=== PATIENT | male | born 1975 | race Caucasian/White ===

== ENCOUNTER 2019-07-19 06:05 | Inpatient (IN) | payer OTHER ==
[2019-07-18 18:49] VITALS: BMI 26.3
[2019-07-19] MEDS ORDERED: fentaNYL CITRATE 250 MCG/5 ML VIAL ONE ×4 (07:37→11:15)
[2019-07-19] MEDS ORDERED: SUCCINYLCHOLINE CHLORIDE 200 MG/10 ML SYRINGE ONE (07:38)
[2019-07-19] MEDS ORDERED: PROPOFOL 20 ML ONE ×11 (07:38→12:08)
[2019-07-19] MEDS ORDERED: BUPIVACAINE LIPOSOME/PF (EXPAREL) 266 MG/20 ML VIAL ONE (07:47)
[2019-07-19] MEDS ORDERED: MIDAZOLAM HCL 2 MG/2 ML SINGLE DOSE VIAL ONE ×2 (07:49)
[2019-07-19] MEDS ORDERED: HEPARIN NA (PORCINE) 5,000 UNITS/ML 1ML VIAL ONE (08:07)
[2019-07-19] MEDS ORDERED: THROMBIN (BOVINE) 20,000 UNIT VIAL TP ONE (08:07)
[2019-07-19] MEDS ORDERED: VANCOMYCIN 1,000 MG VIAL (RESTRICTED TO ID ONLY) IVPB ONE (08:50)
[2019-07-19] MEDS ORDERED: ONDANSETRON 4 MG/2 ML VIAL ONE ×2 (09:01→12:59)
[2019-07-19] MEDS ORDERED: DEXAMETHASONE SOD PHOSPHATE 4 MG/1 ML VIAL ONE (09:01)
[2019-07-19] MEDS ORDERED: TRANEXAMIC ACID 1000 MG/10 ML VIAL ONE ×2 (09:18→10:55)
[2019-07-19] MEDS ORDERED: ceFAZolin SODIUM 1 GM VIAL ONE ×2 (09:18→12:21)
[2019-07-19] MEDS ORDERED: ceFAZolin SODIUM 1 GM VIAL IVPB ONE (09:30)
[2019-07-19] MEDS ORDERED: ROCURONIUM BROMIDE 50 MG/5 ML SYRINGE ONE (09:37)
[2019-07-19] MEDS ORDERED: THROMBIN (BOVINE) 5,000 UNIT VIAL TP ONE (09:38)
[2019-07-19] MEDS ORDERED: GELATIN, ABSORBABLE 100 EACH SPONGE TP ONE (09:38)
[2019-07-19] MEDS ORDERED: HYDROmorphone HCl 2 MG/ML VIAL ONE (10:12)
[2019-07-19] MEDS ORDERED: NEOSTIGMINE METHYLSULFATE 0.5 MG/1 ML - 10 ML MDV ONE (10:30)
[2019-07-19] MEDS ORDERED: GLYCOPYRROLATE 0.2 MG/1 ML VIAL ONE ×2 (10:30→10:31)
[2019-07-19] MEDS ORDERED: ONDANSETRON 4 MG/2 ML VIAL IVPUSH PRN ×2 (10:42→13:21)
[2019-07-19] MEDS ORDERED: HYDROmorphone *PCA* 10MG/50ML DISP.SYRIN PCA SCH (10:45)
[2019-07-19] MEDS ORDERED: HYDROmorphone *PCA* 10MG/50ML DISP.SYRIN ONE (12:49)
[2019-07-19] MEDS: LACTATED RINGERS SOLUTION 1,000 ML IV SCH (13:14)
[2019-07-19] MEDS ORDERED: diazePAM CARPU-JECT 10 MG/2 ML DISP.SYRIN IVPUSH PRN (13:21)
--- NOTE | 2019-07-19 13:29 | PN ---
Progress Note (short form) - Note Progress Note: 43M s/p L5-S1 posterior lumbar interbody fusion with L5-S1 instrumented posterolateral arthrodesis POD #0. -Admit to ICU post-op. -Pain control: patient received pre-op TLIP block w/Exparel; OK to use LABEL OPERATOR if needed; transition to oral analgesia post-op; NO NSAID's. -DVT PPx: -Mechanical only: RICK's, SCD's. -Chemical: None. -Incentive spirometry q15 min. -NPO until flatus. -Shaikh care; d/c when ambulating. -Post-op Ancef x 3 doses. -PT/OT/Rehab, OOB. -WBAT B/L LE. -No bending, lifting (>5 lbs), or twisting for 9-12 months. -Care per ICU & medical hospitalist teams. -Discharge planning: [facility]; call for appointment; . -Will follow. Alexi Bruno MD (Orthopaedic Surgery).
--- NOTE | 2019-07-19 13:33 | OP ---
Operative Note - Note: Operative Date: 07/19/19 Pre-Operative Diagnosis: 1. L5-S1 intervertebral disc herniation 2. L5-S1 spondylotic radiculopathy 3. L5-S1 spinal stenosis with neurogenic claudication 4. L5-S1 spondylolisthesis (retrolisthesis, grade I) 5. Segmental instability ( axial) L5-S1 with neuroforminal collapse & stenosis. SEVERITY OF ILLNESS: 4. Operation: 1. L5, S1 laminectomies & facetectomies. 2. L5-S1 discectomy. 3. L5 -S1 posterior lumbar interbody fusion. 4. L5-S1 posterolateral instrumentation. 5. L5-S1 posterolateral arthrodesis. 6. Bone autograft. 7. Bone allograft. 8. Bone marrow aspirate concentrate autograft. 9. Complex wound closure (10cm). Findings: See dictation. Implants: Cage: RTI Fortilink Post-Operative Diagnosis: Same as Pre-op Surgeon: Alexi Bruno Fire Code Inspector: Josué Bruno Anesthesiologist/EDUCATIONAL AUDIOLOGIST: Julien Sainz Anesthesia: General Specimens Removed: L5-S1 disc Estimated Blood Loss (mls): 500 Blood Volume Replaced (mls): 210 (Cell Saver) Fluid Volume Replaced (mls): 2,000 (Crystalloid) Operative Report Dictated: Yes
--- NOTE | 2019-07-19 15:55 | CONSULT ---
Consultation: REQUESTING PROVIDER: Dr. Bruno CONSULT REQUEST: We have been asked to medically evaluate this patient for post op monitoring. HISTORY OF PRESENT ILLNESS: 43 yo m w/ no PMH who is POD 0 L5, S1 laminectomies & facetectomies, L5-S1 discectomy, L5-S1 posterior lumbar interbody fusion with Dr. Bruno. On interview, the patient is awake and alert in minimal pain. INSURANCE PRODUCER pump in place. No other complaints. REVIEW OF SYSTEMS: CONSTITUTIONAL: Absent: fever, chills, diaphoresis, generalized weakness, malaise, loss of appetite, weight change HEENT: Absent: rhinorrhea, nasal congestion, throat pain, throat swelling, difficulty swallowing, mouth swelling, ear pain, eye pain, visual changes CARDIOVASCULAR: Absent: chest pain, syncope, palpitations, irregular heart rate, lightheadedness , peripheral edema RESPIRATORY: Absent: cough, shortness of breath, dyspnea with exertion, orthopnea, wheezing, stridor, hemoptysis GASTROINTESTINAL: Absent: abdominal pain, abdominal distension, nausea, vomiting, diarrhea, constipation, melena, hematochezia GENITOURINARY: Absent: dysuria, frequency, urgency, hesitancy, hematuria, flank pain, genital pain MUSCULOSKELETAL: Absent: myalgia, joint swelling, neck pain SKIN: Absent: rash, itching, pallor HEMATOLOGIC/IMMUNOLOGIC: Absent: easy bleeding, easy bruising, lymphadenopathy, frequent infections ENDOCRINE: Absent: unexplained weight gain, unexplained weight loss, heat intolerance, cold intolerance NEUROLOGIC: Absent: headache, focal weakness or paresthesias, dizziness, unsteady gait, seizure, mental status changes, bladder or bowel incontinence PSYCHIATRIC: Absent: anxiety, depression, suicidal or homicidal ideation, hallucinations. PHYSICAL EXAMINATION Vital Signs - 24 hr 07/18/19 07/19/19 07/19/19 18:43 06:53 13:14 Temperature 98.9 F 98.9 F 98.2 F Pulse Rate 90 90 89 Respiratory 20 20 16 Rate Blood Pressure 136/74 136/74 159/98 O2 Sat by Pulse 96 99 Oximetry (%) 07/19/19 07/19/19 07/19/19 13:18 13:30 13:45 Temperature Pulse Rate 89 87 90 Respiratory 16 16 16 Rate Blood Pressure 159/68 159/88 157/93 O2 Sat by Pulse 99 96 98 Oximetry (%) 07/19/19 07/19/19 07/19/19 14:00 14:15 14:30 Temperature Pulse Rate 98 H 84 88 Respiratory 18 14 14 Rate Blood Pressure 166/106 H 138/88 143/91 O2 Sat by Pulse 96 97 96 Oximetry (%) 07/19/19 07/19/19 14:45 15:00 Temperature Pulse Rate 84 86 Respiratory 16 16 Rate Blood Pressure 126/90 132/90 O2 Sat by Pulse 96 95 Oximetry (%) GENERAL: Awake, alert, and fully oriented, in no acute distress. HEAD: Normal with no signs of trauma. LUNGS: Breath sounds equal, clear to auscultation bilaterally. No wheezes, and no crackles. No accessory muscle use. HEART: Regular rate and rhythm, normal S1 and S2 without murmur, rub or gallop. ABDOMEN: Soft, nontender, not distended, normoactive bowel sounds, no guarding, no rebound, no masses. No hepatomegaly or splenomegaly. LOWER EXTREMITIES: 2+ pulses, warm, well-perfused. No calf tenderness. No peripheral edema. NEUROLOGICAL: Cranial nerves II-X intact. Normal speech. Sensation intact over the distal lower extremities. Patient able to move all 4 limbs spontaneously. Laboratory Results - last 24 hr 07/19/19 07/19/19 06:11 07:15 Blood Type A POSITIVE A POSITIVE Antibody Screen Negative Active Medications Generic Name Dose Route Start Last Admin Trade Name Freq PRN Reason Stop Dose Admin Acetaminophen 1,000 mg 07/19/19 20:00 Ofirmev Injection - IVPB 07/20/19 12:01 Q8H KAREN Diazepam 5 mg 07/19/19 13:21 07/19/19 13:30 Valium Injection - IVPUSH 5 mg Q8H PRN Administration MUSCLE SPASMS Hydromorphone HCl 10 mg 07/19/19 10:45 07/19/19 13:18 Hydromorphone 10 Mg/50 Ml-Ns INSURANCE PRODUCER 07/20/19 10:44 10 mg INSURANCE PRODUCER KAREN Administration Protocol Lactated Ringer's 1,000 mls @ 125 mls/hr 07/19/19 10:45 07/19/19 13:14 Lactated Ringers Solution IV 0 mls ASDIR KAREN Administration Ondansetron HCl 4 mg 07/19/19 10:42 Zofran Injection IVPUSH Q6H PRN NAUSEA AND/OR VOMITING Ondansetron HCl 4 mg 07/19/19 13:21 Zofran Injection IVPUSH Q6H PRN NAUSEA AND/OR VOMITING Oxycodone HCl 5 mg 07/19/19 13:21 Roxicodone - PO 07/20/19 13:20 Q4H PRN PAIN LEVEL 1-5 Oxycodone HCl 10 mg 07/19/19 13:21 Roxicodone - PO 07/20/19 13:20 Q4H PRN PAIN LEVEL 6-10 ASSESSMENT/PLAN: 43 yo m w/ no PMH who is POD 0 from orthropedic spine surgery with Dr. Bruno. #Neuro: -alert and oriented #Pulmonary -Incentive spirometry [id number] #MSK -POD spinal surgery -neurovascularly intact -post op management as per Dr. Bruno -Pain Ctrl w/ pre-op TLIP block, on INSURANCE PRODUCER for now; NO NSAIDS -PT/OOB #GI -NPO until flatus #ID -post op ancef x 3 doses #FEN -LR @ 125 -will check lytes in am; replete PRN -NPO until flatus #Prophy -Mechanical DVT prophylaxsis only #Dispo -observe post op in ICU Dispo: We will continue to follow the patient. Thank you for this consultative opportunity. Visit type - Emergency Visit Emergency Visit: No - New Patient This patient is new to me today: Yes Date on this admission: 07/19/19 - Critical Care Critical Care patient: Yes Total Critical Care Time (in minutes): 35 Critical Care Statement: The care of this patient involved high complexity decision making to prevent further life threatening deterioration of the patient 's condition and/or to evaluate & treat vital organ system(s) failure or risk of failure. ATTENDING PHYSICIAN STATEMENT I saw and evaluated the patient. I reviewed the resident's note and discussed the case with the resident. I agree with the resident's findings and plan as documented. SUBJECTIVE: OBJECTIVE: ASSESSMENT AND PLAN:
--- NOTE | 2019-07-19 16:12 | PN ---
Physical Exam: SUBJECTIVE: Patient seen and examined in the icu post op. OBJECTIVE: Patient is a 43 year old male. He is s/p L5-S1 posterior lumbar interbody fusion with L5-S1 instrumented posterolateral arthrodesis POD #[address] Bruno. On exam, patient is awake and alert and denies any pain. Has MANAGER RECRUITING dilaudid available to him. Vital Signs Period Temp Pulse Resp BP Sys/Plata Pulse Ox Last 24 Hr 98.2 F-99.2 F 74-98 14-20 126-166/68-120 95-99 GENERAL: The patient is awake, alert, and fully oriented, in no acute distress. HEAD: Normal with no signs of trauma. EYES: PERRL, extraocular movements intact, sclera anicteric, conjunctiva clear. No ptosis. ENT: Ears normal, nares patent, oropharynx clear without exudates, moist mucous membranes. NECK: Trachea midline, full range of motion, supple. LUNGS: Breath sounds equal, clear to auscultation bilaterally HEART: Regular rate and rhythm ABDOMEN: Soft, nontender, nondistended, normoactive bowel sounds EXTREMITIES: no edema. NEUROLOGICAL: Normal speech, gait not observed. Laboratory Results - last 24 hr 07/19/19 07/19/19 06:11 07:15 Blood Type A POSITIVE A POSITIVE Antibody Screen Negative Active Medications Generic Name Dose Route Start Last Admin Trade Name Freq PRN Reason Stop Dose Admin Acetaminophen 1,000 mg 07/19/19 20:00 Ofirmev Injection - IVPB 07/20/19 12:01 Q8H KAREN Diazepam 5 mg 07/19/19 13:21 07/19/19 13:30 Valium Injection - IVPUSH 5 mg Q8H PRN Administration MUSCLE SPASMS Hydromorphone HCl 10 mg 07/19/19 10:45 07/19/19 13:18 Hydromorphone 10 Mg/50 Ml-Ns MANAGER RECRUITING 07/20/19 10:44 10 mg MANAGER RECRUITING KAREN Administration Protocol Lactated Ringer's 1,000 mls @ 125 mls/hr 07/19/19 10:45 07/19/19 13:14 Lactated Ringers Solution IV 800 mls ASDIR KAREN Administration Ondansetron HCl 4 mg 07/19/19 10:42 Zofran Injection IVPUSH Q6H PRN NAUSEA AND/OR VOMITING Ondansetron HCl 4 mg 07/19/19 13:21 Zofran Injection IVPUSH Q6H PRN NAUSEA AND/OR VOMITING Oxycodone HCl 5 mg 07/19/19 13:21 Roxicodone - PO 07/20/19 13:20 Q4H PRN PAIN LEVEL 1-5 Oxycodone HCl 10 mg 07/19/19 13:21 Roxicodone - PO 07/20/19 13:20 Q4H PRN PAIN LEVEL 6-10 ASSESSMENT/PLAN: Surgery: L5-S1 posterior lumbar interbody fusion with L5-S1 instrumented posterolateral arthrodesis POD #0 Post op monitoring in the ICU. on dilaudid commercial development manager initiate post op care: incentive spirometer, vitals signs, labs, pain scale surgery follow up Npo until flatus post op antibiotics wbat surgical weight lifting restrictions discharge planning once cleared by surgery Hypertension BP elevated monitor and is remain elevated may need antihypertensives prophylaxis SCDs diet once patient has flatus full code Visit type - Emergency Visit Emergency Visit: Yes ED Registration Date: 07/19/19 Care time: The patient presented to the Emergency Department on the above date and was hospitalized for further evaluation of their emergent condition. - New Patient This patient is new to me today: Yes Date on this admission: 07/19/19 - Critical Care Critical Care patient: Yes Total Critical Care Time (in minutes): 40 Critical Care Statement: The care of this patient involved high complexity decision making to prevent further life threatening deterioration of the patient 's condition and/or to evaluate & treat vital organ system(s) failure or risk of failure. - Discharge Referral Referred to [facility] No
[2019-07-19] MEDS: oxyCODONE HCL 5 MG TABLET PO PRN ×2 (16:37→22:15)
[2019-07-19] MEDS: ceFAZolin 2 GRAM PREMIX BAG IVPB SCH (18:22)
[2019-07-19] MEDS: ACETAMINOPHEN 1000 MG/100 ML VIAL (NON FORMULARY) IVPB SCH (20:16)
[2019-07-19] MEDS ORDERED: MELATONIN 5 MG TABLETS PO ONE (22:04)
[2019-07-20] MEDS: ceFAZolin 2 GRAM PREMIX BAG IVPB SCH ×2 (00:24→06:30)
[2019-07-20] MEDS: oxyCODONE HCL 5 MG TABLET PO PRN ×5 (02:47→22:01)
[2019-07-20] MEDS: ACETAMINOPHEN 1000 MG/100 ML VIAL (NON FORMULARY) IVPB SCH ×2 (04:30→12:03)
[2019-07-20 06:46] LABS: BASO % 0.2 % (0-2.0); EOS % 0.1 % (0-4.5); HEMATOCRIT 33.2 % (35.4-49); HEMOGLOBIN 11.5 GM/dL (11.7-16.9); LYMPH % 23.1 % (8-40); MCH 32.6 pg (25.7-33.7); MCHC 34.7 g/dl (32.0-35.9); MEAN PLT VOLUME 9.3 fl (7.5-11.1); MONO % 6.8 % (3.8-10.2); NEUT % 69.8 % (42.8-82.8); PLATELET COUNT 163 K/MM3 (134-434); RBC 3.53 M/mm3 (4.00-5.60); RDW 12.6 % (11.9-15.9); WHITE BLOOD COUNT 8.2 K/mm3 (4.0-10.0)
[2019-07-20 07:11] LABS: ALBUMIN 2.6 g/dl (3.4-5.0); BILIRUBIN,TOTAL 0.2 mg/dL (0.2-1); BLOOD UREA NITROGEN 9.2 mg/dL (7-18); CALCIUM 7.4 mg/dL (8.5-10.1); CREATININE 0.8 mg/dL (0.55-1.3); MAGNESIUM 1.7 mg/dL (1.8-2.4); PHOSPHOROUS 2.6 mg/dL (2.5-4.9); POTASSIUM 4.1 mmol/L (3.5-5.1); TOT PROT 5.1 g/dl (6.4-8.2)
--- NOTE | 2019-07-20 08:30 | PN ---
Progress Note (short form) - Note Progress Note: Anesthesia/pain Pt seen and examined S:Alert and awake comfortable O: Vital Signs Temperature 99 F 07/20/19 07:20 Pulse Rate 78 07/20/19 07:20 Respiratory Rate 15 07/20/19 07:20 Blood Pressure 118/67 07/20/19 07:20 O2 Sat by Pulse Oximetry (%) 95 07/20/19 07:20 CBC, BMP 07/20/19 06:00 07/20/19 06:00 A/P: s/p PLIF Lumbar Uses BRINELL TESTER Doing well post op Continue current care Musa Ivey MD
--- NOTE | 2019-07-20 10:18 | PN ---
Teaching Attending Note Name of Resident: Aly Kern ATTENDING PHYSICIAN STATEMENT I saw and evaluated the patient. I reviewed the resident's note and discussed the case with the resident. I agree with the resident's findings and plan as documented. SUBJECTIVE: Patient seen and examined in the ICU. OOB to chair. Pain 8/10. On DISTRESSER. No CP or SOB. Intake & Output 07/17/19 07/18/19 07/19/19 07/20/19 23:59 23:59 23:59 23:59 Intake Total 3010 Output Total 2400 Balance 610 Weight 205 lb Last Vital Signs Temp Pulse Resp BP Pulse Ox 99 F 78 15 118/67 95 07/20/19 07:20 07/20/19 07:20 07/20/19 07:20 07/20/19 07:20 07/20/19 07:20 Active Medications Acetaminophen (Ofirmev Injection -) 1,000 mg IVPB Q8H [facility] Stop: 07/20/19 12:01 Last Admin: 07/20/19 04:30 Dose: 1,000 mg Diazepam (Valium Injection -) 5 mg IVPUSH Q8H PRN PRN Reason: MUSCLE SPASMS Last Admin: 07/19/19 13:30 Dose: 5 mg Hydromorphone HCl (Hydromorphone 10 Mg/50 Ml-Ns) 10 mg DISTRESSER DISTRESSER [facility]; Protocol Stop: 07/20/19 10:44 Last Admin: 07/19/19 13:18 Dose: 10 mg Lactated Ringer's (Lactated Ringers Solution) 1,000 mls @ 125 mls/hr IV ASDIR [facility] Last Admin: 07/19/19 13:14 Dose: 800 mls Ondansetron HCl (Zofran Injection) 4 mg IVPUSH Q6H PRN PRN Reason: NAUSEA AND/OR VOMITING Ondansetron HCl (Zofran Injection) 4 mg IVPUSH Q6H PRN PRN Reason: NAUSEA AND/OR VOMITING Oxycodone HCl (Roxicodone -) 5 mg PO Q4H PRN PRN Reason: PAIN LEVEL 1-5 Stop: 07/20/19 13:20 Last Admin: 07/19/19 22:15 Dose: 5 mg Oxycodone HCl (Roxicodone -) 10 mg PO Q4H PRN PRN Reason: PAIN LEVEL 6-10 Stop: 07/20/19 13:20 Last Admin: 07/20/19 09:27 Dose: 10 mg GENERAL: Awake, alert, and fully oriented, in no acute distress. HEAD: Normal with no signs of trauma. LUNGS: Breath sounds equal, clear to auscultation bilaterally. No wheezes, and no crackles. No accessory muscle use. HEART: Regular rate and rhythm, normal S1 and S2 without murmur, rub or gallop. ABDOMEN: Soft, nontender, not distended, normoactive bowel sounds, no guarding, no rebound, no masses. No hepatomegaly or splenomegaly. LOWER EXTREMITIES: 2+ pulses, warm, well-perfused. No calf tenderness. No peripheral edema. NEUROLOGICAL: Non-focal. Sensation intact over the distal lower extremities. Patient able to move all 4 limbs spontaneously. Laboratory Results - last 24 hr 07/19/19 07/20/19 07/20/19 07:15 06:00 06:00 WBC 8.2 RBC 3.53 L Hgb 11.5 L Hct 33.2 L MCV 94.0 MCH 32.6 MCHC 34.7 RDW 12.6 Plt Count 163 MPV 9.3 Absolute Neuts (auto) 5.7 Neutrophils % 69.8 Lymphocytes % 23.1 Monocytes % 6.8 Eosinophils % 0.1 Basophils % 0.2 Nucleated RBC % 0 Sodium 138 Potassium 4.1 Chloride 105 Carbon Dioxide 29 Anion Gap 4 L BUN 9.2 Creatinine 0.8 Est GFR (CKD-EPI)AfAm 125.92 Est GFR (CKD-EPI)NonAf 108.65 Random Glucose 163 H Calcium 7.4 L Phosphorus 2.6 Magnesium 1.7 L Total Bilirubin 0.2 AST 32 ALT 25 Alkaline Phosphatase 52 Total Protein 5.1 L Albumin 2.6 L Blood Type A POSITIVE ASSESSMENT/PLAN: POD#1: 1. L5, S1 laminectomies & facetectomies. 2. L5-S1 discectomy. 3. L5-S1 posterior lumbar interbody fusion. 4. L5-S1 posterolateral instrumentation. 5. L5-S1 posterolateral arthrodesis. 6. Bone autograft. 7. Bone allograft. 8. Bone marrow aspirate concentrate autograft. 9. Complex wound closure (10cm). DISTRESSER Add Oxycodone PO IVF PT / OOB Po as tolerated VTE prophylaxis Incentive Spirometry Floor Dr Strange
[2019-07-20] MEDS: LACTATED RINGERS SOLUTION 1,000 ML IV SCH (12:03)
[2019-07-20] MEDS ORDERED: MAGNESIUM CL 64 MG TABLET.SA PO ONE (12:20)
--- NOTE | 2019-07-20 12:32 | PN ---
Progress Note (short form) - Note Progress Note: POD #1 PLIF L5/S1 In ICU Feeling good except for incisional backpain Original radiculopathic pain gone Walked in the hallway Did well Vitals as per chart Apyrexial Neuro Grossly motor and sensory intact Wound Bandage dry ABD Soft Passing flatus Ate a sandwich last night ASSESS Marked improvement PLAN T/F to floor Pain Mx PT mobilize as tolerated D/c planning home ? tomorrow/Monday Follow up in office [facility] [phone]
--- NOTE | 2019-07-20 13:15 | PN ---
Physical Exam: SUBJECTIVE: Patient seen and examined NAEON Tolerated sandwich and CLD yesterday. Has flatus. Has lower back pain OBJECTIVE: Vital Signs Period Temp Pulse Resp BP Sys/Plata Pulse Ox Last 24 Hr 98.2 F-99.2 F 67-98 13-19 98-166/56-120 95-99 GENERAL: Alert, and fully oriented, in no acute distress. HEAD: Normal with no signs of trauma. EYES: Sclera anicteric, conjunctiva clear. No ptosis. ENT: Ears normal, nares patent, oropharynx clear without exudates, moist mucous membranes. NECK: Trachea midline, full range of motion, supple. LUNGS: Breath sounds equal, clear to auscultation bilaterally, no wheezes, no crackles, no accessory muscle use. HEART: Regular rate and rhythm, S1, S2 without murmur, rub or gallop. ABDOMEN: Soft, nontender, nondistended, normoactive bowel sounds, no guarding, no rebound. EXTREMITIES: 2+ pulses, warm, well-perfused, no edema. NEUROLOGICAL: Normal speech. BLE with gross sensation intact. Moving toes without deficit. Lower back covered in surgical dressing SKIN: Warm, dry, normal turgor, no rashes or lesions noted Laboratory Results - last 24 hr 07/20/19 07/20/19 06:00 06:00 WBC 8.2 RBC 3.53 L Hgb 11.5 L Hct 33.2 L MCV 94.0 MCH 32.6 MCHC 34.7 RDW 12.6 Plt Count 163 MPV 9.3 Absolute Neuts (auto) 5.7 Neutrophils % 69.8 Lymphocytes % 23.1 Monocytes % 6.8 Eosinophils % 0.1 Basophils % 0.2 Nucleated RBC % 0 Sodium 138 Potassium 4.1 Chloride 105 Carbon Dioxide 29 Anion Gap 4 L BUN 9.2 Creatinine 0.8 Est GFR (CKD-EPI)AfAm 125.92 Est GFR (CKD-EPI)NonAf 108.65 Random Glucose 163 H Calcium 7.4 L Phosphorus 2.6 Magnesium 1.7 L Total Bilirubin 0.2 AST 32 ALT 25 Alkaline Phosphatase 52 Total Protein 5.1 L Albumin 2.6 L Active Medications Generic Name Dose Route Start Last Admin Trade Name Freq PRN Reason Stop Dose Admin Diazepam 5 mg 07/19/19 13:21 07/19/19 13:30 Valium Injection - IVPUSH 5 mg Q8H PRN Administration MUSCLE SPASMS Lactated Ringer's 1,000 mls @ 125 mls/hr 07/19/19 10:45 07/20/19 12:03 Lactated Ringers Solution IV 125 mls/hr ASDIR KAREN Administration Ondansetron HCl 4 mg 07/19/19 10:42 Zofran Injection IVPUSH Q6H PRN NAUSEA AND/OR VOMITING Ondansetron HCl 4 mg 07/19/19 13:21 Zofran Injection IVPUSH Q6H PRN NAUSEA AND/OR VOMITING Oxycodone HCl 5 mg 07/19/19 13:21 07/20/19 12:06 Roxicodone - PO 07/20/19 13:20 5 mg Q4H PRN Administration PAIN LEVEL 1-5 Oxycodone HCl 10 mg 07/19/19 13:21 07/20/19 09:27 Roxicodone - PO 07/20/19 13:20 10 mg Q4H PRN Administration PAIN LEVEL 6-10 ASSESSMENT/PLAN: 43 yo m w/ w/ pmh of L-spine herniated disc who is POD 1 from PLIF L5/S1(Kiana, 07/19/19). Neuro: # post-op pain -alert and oriented -mobilize as tolerated -pain mgmt: ofirmev, oxycodone Pulmonary # at-risk for post-op atelectasis -Incentive spirometry [id number] MSK -POD spinal surgery -neurovascularly intact -post op management as per Dr. Bruno -Pain Ctrl; NO NSAIDS -PT/OOB GI - reg diet #ID -post op ancef x 3 doses --completed #FEN -tolerating PO, will stop IVF -will check lytes in am; replete PRN #Prophy -Mechanical DVT prophylaxsis only #Dispo -downgrade from ICU Visit type - Emergency Visit Emergency Visit: No - New Patient This patient is new to me today: Yes Date on this admission: 07/20/19 - Critical Care Critical Care patient: Yes Total Critical Care Time (in minutes): 36 Critical Care Statement: The care of this patient involved high complexity decision making to prevent further life threatening deterioration of the patient 's condition and/or to evaluate & treat vital organ system(s) failure or risk of failure. ATTENDING PHYSICIAN STATEMENT I saw and evaluated the patient. I reviewed the resident's note and discussed the case with the resident. I agree with the resident's findings and plan as documented. SUBJECTIVE: OBJECTIVE: ASSESSMENT AND PLAN:
[2019-07-20] MEDS ORDERED: MAGNESIUM OXIDE 400 MG TABLET (FP) PO ONE (14:15)
[2019-07-20] MEDS ORDERED: oxyCODONE HCL 5 MG TABLET PO PRN (14:57)
[2019-07-20] MEDS ORDERED: HYDROmorphone HCl 2 MG/ML VIAL IVPUSH ONE ×2 (15:05→15:53)
[2019-07-20] MEDS: ACETAMINOPHEN 1000 MG/100 ML VIAL (NON FORMULARY) IVPB PRN (16:10)
[2019-07-20] MEDS ORDERED: diazePAM CARPU-JECT 10 MG/2 ML DISP.SYRIN IVPUSH PRN (17:28)
[2019-07-20] MEDS ORDERED: ONDANSETRON 4 MG/2 ML VIAL IVPUSH PRN ×2 (17:28)
--- NOTE | 2019-07-20 17:36 | PN ---
Progress Note (short form) - Note Progress Note: Status post spinal surgery no new complain much better no fever no chills review of system is negative. Vital Signs Period Temp Pulse Resp BP Sys/Plata Pulse Ox Last 24 Hr 98.2 F-99.2 F 67-80 13-19 98-150/56-74 95-95 Examination GENERAL: Alert, and fully oriented, in no acute distress. HEAD: Normal with no signs of trauma. EYES: Sclera anicteric, conjunctiva clear. No ptosis. ENT: Ears normal, nares patent, oropharynx clear without exudates, moist mucous membranes. NECK: Trachea midline, full range of motion, supple. LUNGS: Breath sounds equal, clear to auscultation bilaterally, no wheezes, no crackles, no accessory muscle use. HEART: Regular rate and rhythm, S1, S2 without murmur, rub or gallop. ABDOMEN: Soft, nontender, nondistended, normoactive bowel sounds, no guarding, no rebound. EXTREMITIES: 2+ pulses, warm, well-perfused, no edema. NEUROLOGICAL: Normal speech. BLE with gross sensation intact. Moving toes without deficit. Lower back covered in surgical dressing SKIN: Warm, dry, normal turgor, no rashes or lesions noted CBC, BMP 07/20/19 06:00 07/20/19 06:00 Assessment and plan 43 yo m w/ w/ pmh of L-spine herniated disc who is POD 1 from PLIF L5/S1 Continue current care mobilize as per neurosurgery continue pain management. Visit type - Emergency Visit Emergency Visit: Yes ED Registration Date: 07/19/19 Care time: The patient presented to the Emergency Department on the above date and was hospitalized for further evaluation of their emergent condition. - New Patient This patient is new to me today: Yes Date on this admission: 07/20/19 - Critical Care Critical Care patient: No - Discharge Referral Referred to [facility] No
[2019-07-20] MEDS ORDERED: HYDROmorphone HCl 2 MG/ML VIAL IVPB ONE (18:54)
[2019-07-21] MEDS: oxyCODONE HCL 5 MG TABLET PO PRN ×5 (01:03→21:42)
[2019-07-21 08:44] LABS: HEMATOCRIT 36.2 % (35.4-49); HEMOGLOBIN 12.3 GM/dL (11.7-16.9); MCH 31.9 pg (25.7-33.7); MEAN CELL VOLUME 93.8 fl (80-96); MEAN PLT VOLUME 9.7 fl (7.5-11.1); PLATELET COUNT 163 K/MM3 (134-434); RBC 3.86 M/mm3 (4.00-5.60); RDW 12.6 % (11.9-15.9); WHITE BLOOD COUNT 11.3 K/mm3 (4.0-10.0)
[2019-07-21 08:57] LABS: BLOOD UREA NITROGEN 6.4 mg/dL (7-18); CALCIUM 7.7 mg/dL (8.5-10.1); CREATININE 0.7 mg/dL (0.55-1.3); MAGNESIUM 1.8 mg/dL (1.8-2.4); POTASSIUM 3.6 mmol/L (3.5-5.1)
--- NOTE | 2019-07-21 09:33 | PN ---
Progress Note (short form) - Note Progress Note: Post op day#2.Patient stable and c/o pain score of 4-5/10 on POnpain medication.HOT PRESS OPERATOR is DC .No any anesthesia related problem.Patient c from the anesthesia care.
[2019-07-21] MEDS: ACETAMINOPHEN 1000 MG/100 ML VIAL (NON FORMULARY) IVPB PRN (13:02)
[2019-07-21] MEDS ORDERED: ACETAMINOPHEN 325 MG TABLET (FP) PO PRN (14:50)
--- NOTE | 2019-07-21 14:50 | PN ---
Progress Note (short form) - Note Progress Note: Status post spinal surgery no new complain much better But he has low-grade fever 100.1 no localized symptoms Vital Signs Period Temp Pulse Resp BP Sys/Plata Pulse Ox Last 24 Hr 97.9 F-100.4 F 78-96 17-18 136-148/71-83 95 Examination GENERAL: Alert, and fully oriented, in no acute distress. HEAD: Normal with no signs of trauma. EYES: Sclera anicteric, conjunctiva clear. No ptosis. ENT: Ears normal, nares patent, oropharynx clear without exudates, moist mucous membranes. NECK: Trachea midline, full range of motion, supple. LUNGS: Breath sounds equal, clear to auscultation bilaterally, no wheezes, no crackles, no accessory muscle use. HEART: Regular rate and rhythm, S1, S2 without murmur, rub or gallop. ABDOMEN: Soft, nontender, nondistended, normoactive bowel sounds, no guarding, no rebound. EXTREMITIES: 2+ pulses, warm, well-perfused, no edema. NEUROLOGICAL: Normal speech. BLE with gross sensation intact. Moving toes without deficit. Lower back covered in surgical dressing SKIN: Warm, dry, normal turgor, no rashes or lesions noted CBC, BMP 07/21/19 07:20 07/21/19 07:20 Assessment and plan 43 yo m w/ w/ pmh of L-spine herniated disc who is POD 1 from PLIF L5/S1 Continue current care mobilize as per neurosurgery continue pain management. Low-grade fever with slightly high white cell count 11.3. It could be due to post op inflammatory inflammation Will watch give Tylenol for fever if fever goes up more than 101 will do blood culture. Visit type - Emergency Visit Emergency Visit: Yes ED Registration Date: 07/19/19 Care time: The patient presented to the Emergency Department on the above date and was hospitalized for further evaluation of their emergent condition. - New Patient This patient is new to me today: No - Critical Care Critical Care patient: No - Discharge Referral Referred to [facility] Med P.C.: No
[2019-07-21] MEDS ORDERED: KETOROLAC TROMETHAMINE 30 MG/1 ML VIAL IVPUSH ONE (15:45)
[2019-07-21] MEDS ORDERED: diazePAM 5 MG TABLET PO PRN (22:57)
--- NOTE | 2019-07-22 09:01 | OP ---
Date of Operation: 07/19/2019 Pre-Operative Diagnosis: 1. 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 2. L5-S1 spinal stenosis with neurogenic claudication. 3. L5-S1 spondylolisthesis (Grade I retrolisthesis). 4. L5-S1 axial segmental instability with myofascial pain complex and lumbosacral enthesopathy. Post-Operative Diagnosis: 1. 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 2. L5-S1 spinal stenosis with neurogenic claudication. 3. L5-S1 spondylolisthesis (Grade I retrolisthesis). 4. L5-S1 axial segmental instability with myofascial pain complex and lumbosacral enthesopathy. Procedure Performed: 1. L5, S1 bilateral laminectomies and facetectomies. (26103-25, 86713-83) 2. L5-S1 posterolateral arthrodesis & posterior lumbar interbody fusion (PLIF). (99497) 3. L5-S1 insertion biomechanical device. (37028) 4. L5-S1 bilateral posterior instrumentation. (49816-63) 5. Morselized bone autograft. (82584) 6. Morselized bone allograft. (74317) 7. Bone marrow aspiration for bone grafting. (84350) 8. Complex wound closure, 4 layers, 10cm. (71856 x 2) Findings: 1. Arthrofibrosis, bilateral L5-S1 facet joints. 2. Right-sided L5-S1 facet cyst. 3. Interlaminar fibrosis, L5-S1. 4. Delamination of hyaline cartilage of bilateral L5-S1 facet joints. Surgeon: Alexi Bruno M.D. Marble Machine Tender: Josué Bruno M.D. Anesthesiologist: Julien Sainz M.D. Anesthesia: General, Local. Position: Prone. Incision: Midline. Specimens Removed: L5-S1 disc. Drains: None. Estimated Blood Loss: 500cc. Intravenous Fluid: 2L crystalloid. Transfusions: 210cc Cell Saver. Complications: None. Bacteriology: None. Closure: No. 1 Vicryl, 2-0 Biosyn absorbable sutures. Indications: The patient was indicated for the above listed surgical procedure due to progressive neurological and functional decline that limits his mobility and capacity to independently perform routine activities of daily living. The patient was identified in the holding area by his armband. A long discussion was held with the patient regarding the risks, benefits and alternatives of the above-named procedure. The risks include, but are not limited to: pain, bleeding, infection, damage to surrounding structures (including nerves, blood vessels, skin, ligaments, tendons, and bone), nerve palsy, paresthesias, weakness, limp, wound complications, pseudarthrosis, failure of fusion, failure of hardware/implants/reduction, need for further surgery, blood clots, myocardial infarction, pulmonary embolism, cerebrovascular event, anesthesia complications, neurological injury, loss of function, and . Benefits as mentioned above. Alternatives include no surgery. All questions were answered. The patient understood and agreed to the procedure. Informed consent was obtained, witnessed and verified by hospital nursing staff. The patients lumbar spine was marked. The patient was then assessed by the anesthesia team and then taken to the operating room. Procedure: The patient was brought into the operating room. Consent and the operative site were again verified with the patient, the nursing team, the surgical team, and the anesthesiology team. Anesthesia, IV antibiotics, and TXA were then administered without complication. A time out was done, led by me the attending surgeon. An indwelling Shaikh catheter was successfully inserted by the nursing team. The intra-operative neuromonitoring team provided prepositioning baseline motor and sensory readings. The patient was then safely placed in a prone position with all bony prominences well-padded on [facility] with strict attention paid to sagittal vertical alignment. Retroversion of the pelvis was avoided by ensuring that the hips were extended. This also ensured appropriate lumbar lordosis. The arms were placed on well-padded arm boards and maintained with standard forward flexion, abduction, and external rotation of the shoulders, and flexion of the elbows. Special attention was given to the safe positioning of the cervical spine. The patients eyes, and belly were all free. The table was placed in 6 degrees of reverse Trendelenburg position to avoid ophthalmic vein congestion. Post-positional motor and sensory readings confirmed no change. A C-arm fluoroscopy unit was positioned perpendicularly to the table and maintained at the level of the upper thoracic spine, except when needed. The skin was prepped in standard, sterile fashion using betadine prep & scrub, wiped off with alcohol, and DuraPrep applied. Standard window draping was utilized, and this included draping of the C-arm. All pre-operative imaging was available throughout the case for intraoperative evaluation. Verification of the intended surgical levels was confirmed with a lateral fluoroscopic x-ray using a Cates elevator for localization. A time-out was repeated, and the case began. A midline skin incision was performed from the tip of the spinous process of L3 to the tip of the spinous process of S2. Using electrocautery, the dissection was carried down through subcutaneous fat and then through the midline of the lumbodorsal fascia down to the tips of the spinous processes. A subperiosteal dissection was performed using a combination of unipolar electrocautery and Cates elevation. This was carried down the spinous process, over the laminae, across the facet joints, and out over the tips of the transverse processes from L5 to the ala of the sacrum. The posterolateral dissection was performed with attention to hemostasis by utilizing both unipolar as well as bipolar electrocautery. In this dissection, the capsules of the L4-L5 joints were preserved bilaterally. The L5-S1 joint capsules were pathologically hypertrophic. On the right side, a large L5-S1 facet cyst was identified and noted to contribute to the lateral recess stenosis on that side. These facet joints, and the right-sided cyst, were ablated using electrocautery and resected with Leksell rongeurs. The posterolateral and intertransverse spaces were packed with Ray-Stacey sponges. A Reese clamp was placed over an exposed interspinous space and, once again, a lateral fluoroscopic x-ray helped identify the correct levels for dissection. A rongeur was used to grasp the L5 spinous process and demonstrate the mobility of the L5-S1 segment. The rongeur was also used to grasp the S1 spinous process and demonstrate the rigidity of the associated segment. This helped identify the last mobile segment. This was correlated with pre-operative and intra-operative imaging. Bilateral laminectomies were performed at L5, and S1 utilizing Kerrison rongeur upcuts combined with Leksell rongeurs. All harvested bone was saved, freed of fibrous tissue, and morselized with a bone mill. Next, an osteotome was utilized to bilaterally longitudinally split the pars interarticularis and the inferior facets of L5. The osteotomized bone was imploded towards the thecal sac, which was protected with cottonoid patties, and removed with either a Leksell rongeur or a Kerrison ronguer. The ligamentum flavum and other posterior soft tissue remained intact and served as a soft-tissue cushion which protected the dura during the bony implosion. Upon removal of all osteotomized bone, we gained clear and easy access to the superior facets of S1, where abnormally tight recess stenosis was appreciated. The exiting L5 & S1 nerve roots were identified and protected. More than the medial half of the superior facet was resected on each side using Kerrison rongeurs. This was necessary to adequately decompress the lateral recess, theca, and the exiting nerve roots at each level. The crowding of the convoluted ligamentum flavum and posterior facet joint capsules contributed to the recess stenosis. These structures were excised using Kerrison upcuts, thus fully completing the decompression. Each foramen from L5-S1 was inspected utilizing an angled ball-tipped probe and proved to be generously capacious in accommodating the unobstructed exit of the nerve root at that level. All retractors were relaxed and removed. A Jamshidi needle was delivered into the right posterior ileum through the same surgical incision, and 60 mL of bone marrow was aspirated. A centrifuge was then used to spin down and isolate a mix of osteoprogenitor and hematopoietic cells, and platelet poor plasma. Retractors were inserted once again. In order to adequately decompress each lateral recess and neuroforamen from L5- S1, greater than 50% of the facet joint on each side was osteotomized and resected. The literature shows that this extent of decompression results in iatrogenic instability of the spine (I.E. spondylolisthesis). Thus, the decision was made to stabilize the spine by additionally performing a posterior lumbar interbody fusion and instrumented posterolateral arthrodesis at L5-S1. Given the fact that this patient's pre-operative imaging revealed a Grade I spondylolisthesis (retrolisthesis), this further validated the diagnosis of L5- S1 segmental instability, thus validating the need for instrumented stabilization and fusion. This enabled us to perform a discectomy and remove the compromised disc at L5-S1 while reconstituting the intervertebral disc height via placement of an interbody device/cage. This not only ensured an anterior arthrodesis of the L5-S1 interspace, while reconstitution of the intervertebral disc height further decompressed the stenosed neuroforaminae bilaterally. The combination of anterior interbody arthrodesis and posterolateral instrumented arthrodesis is shown in the literature to produce the highest success rates of spinal fusion surgery. The following was performed at L5-S1: The theca was gently mobilized from right to left and then from left to right using a nerve root retractor. In order to do this, we ensured that each nerve root was completely free in its neural foramen as previously described. With the intervertebral disc clearly visualized, large epidural veins were cauterized using bipolar electrocautery. The intervertebral disc was noted to be calcified and hard. The disc was approached from the right side and using a #11-blade, an elliptical annulotomy was performed. Ozzie were sequentially passed into the disc at each level. At each level the discs were morselized with rotation of the ozzie, and then extricated with pituitary rongeurs and saved for lab evaluation. The end plates were freed of all soft tissues using a serrated curette. Milled bone autograft was packed into the interbody space, thus completing an anterior arthrodesis of the intervertebral space. A Fortilink Tetrafuse cage spacer, that was packed with autograft bone, was inserted into the prepared intervertebral space. The cage was placed in a Press-Fit type manner where the ozzie were one size under the actual size of the spacer placed as outlined above. An interference fit of the cage assured stable cage placement and that we relied on ligamentotaxis for fixation. No dural problems were encountered, and the dura appeared healthy throughout the procedure. At this point, the neuromonitoring revealed no complications. Cages and sizes inserted: L5-S1: [id number]. Pedicle screws were then seated bilaterally from L5-S1 utilizing standard anatomical guidelines: IE the intersection of the horizontal axis of the transverse process with the longitudinal axis of the inferior facet at each level. Utilizing lateral fluoroscopic x-ray, a 4.5mm pneumatic drill was passed via the pedicle at each level, into the corresponding vertebral body. Imaging allowed us to ensure that the drill was delivered along the undersurface of each endplate. This ensured fixation into the best quality bone. Each pedicle was palpated with a ball-tipped feeler. No breech of anterior, medial, lateral, caudal or cranial bone bed was noted. Precision Spine Reform screws were inserted from L5 to S1. We then tested the electrical conduction of each screw with the neuromonitoring team. All intraoperative neuromonitoring screw readings were at or above the safe passage of 10 mA. Each screw was reevaluated with lateral and anteroposterior fluoroscopy as well as intraoperative neuromonitoring. The L5 and S1 pedicles were inspected and palpated using an angled ball-tipped probe. There was no evidence of screw breach involving any of the pedicles. Next, two rods were contoured, inserted, and fixed into the screw heads with the appropriate screw caps. A torque-limiting device completed the fixation of each cap into each screw head. No crosslink was utilized. Next, the muscle was gently retracted off the intertransverse plane. All Ray-Stacey packing sponges were removed. Milled autologous bone with allograft expansion was combined with the bone marrow aspirate concentrate and used for the posterolateral arthrodesis along the intertransverse plane from L5 to S1. Prior to this bone grafting, the recipient bone bed was denuded of all soft tissue. No burring was necessary due to healthy bleeding of each bony surface, including the posterior surfaces of the bilateral transverse processes, and the lateral surfaces of the pars interarticularis at each level. Throughout the case, the wound was irrigated with warm normal saline solution to keep the exposed soft tissues hydrated. The retractors were released every 15 to 20 minutes to enable adequate blood flow to the paraspinal muscles. These muscles were gently massaged upon release of the retractors to further facilitate blood flow. At the end of the procedure, fragmented and compromised paraspinal muscle was superficially debrided. The anesthesiologist then performed a repeat Valsalva maneuver up to 40mmHg. Again, there was no evidence of dural defect, cerebrospinal fluid leak, or uncontrollable bleeding. Closure: The lumbodorsal fascia and underlying paraspinal musculature was closed in the midline using #1 vicryl sutures in simple interrupted fashion. A 1/8 HemoVac drain was placed in the suprafascial plane, exiting adjacent to the proximal apex of the incision. The wound was repeatedly thoroughly irrigated with normal saline solution. The subcutaneous tissues were closed using #1 Vicryl sutures. The skin was closed using a running 2-0 Biosyn absorbable suture. This completed a 4-layered complex wound closure of approximately 10cm. The skin was then painted with benzoin and Steri-Strips were applied without tension perpendicularly to the incision. A Primapore adhesive Telfa island dressing was applied over the Steri-Strips and a sterile, compressive dressing was applied using 4x4 gauze pads. The skin was painted with DuraPrep. The wound was then sealed with adhesive Ioban. Final AP & lateral fluoroscopic analysis revealed L5-S1 PLIF cages and L5-S1 instrumentation that appeared intact & place. The L5-S1 disc heights were reconstituted with visibly patent neuroforaminae. There was no fluoroscopic evidence of retained sponges or needles. The sponge and needle counts were correct at the end of the case and I, the attending surgeon, was present and scrubbed throughout the case. All neural monitoring leads were removed. The patient was transferred to a hospital bed. The patient was then transferred to the recovery room in stable condition, as per the anesthesia team, having tolerated the procedure well. Overall comment: Operation went extremely well with no complications. All appropriate goals were achieved in this operative event. MD LAYLA Veronica/[id number] MTDD
--- NOTE | 2019-07-22 09:07 | PN ---
Progress Note (short form) - Note Progress Note: 43M s/p L5-S1 posterior lumbar interbody fusion with L5-S1 instrumented posterolateral arthrodesis POD #3. Pain well controlled. No acute events overnight. Pt. denies overnight history of headaches, chest pain, shortness of breath, nausea, vomiting, chills, & sweats. (+) Urine; (+) Flatus; (+) BM. (+) Walked in room with rolling walker. All labs and vitals reviewed. PE: AAO x 3, NAD. L-Spine: Incision, dressing C/D/I. B/L LE M: L2-S1 5/5. B/L LE S: L2-S1 2/2. 43M s/p L5-S1 posterior lumbar interbody fusion with L5-S1 instrumented posterolateral arthrodesis POD #3. -Pain control: oral meds; NO NSAID's; Vicodin ordered to patient's pharmacy. -DVT PPx: -Mechanical only: RICK's, SCD's. -Chemical: None. -Incentive spirometry q15 min. -PT/OT/Rehab, OOB. -WBAT B/L LE. -q4h B/L LE NV checks. -Raised toilet seat. -No bending, lifting (>5 lbs), or twisting. -Care per medical hospitalist team. -Discharge planning: f/u 07/25/2019 at [facility] [place] office; call for appointment; . -Will follow. Alexi Bruno MD (Orthopaedic Surgery).
--- NOTE | 2019-07-22 09:09 | PN ---
Progress Note, Physician - Current Medication List Current Medications: Active Medications Acetaminophen (Tylenol -) 650 mg PO Q6H PRN PRN Reason: PAIN 1-3 Last Admin: 07/22/19 06:58 Dose: 650 mg Diazepam (Valium -) 5 mg PO Q8H PRN PRN Reason: MUSCLE SPASMS Ondansetron HCl (Zofran Injection) 4 mg IVPUSH Q6H PRN PRN Reason: NAUSEA AND/OR VOMITING Oxycodone HCl (Roxicodone -) 5 mg PO Q4H PRN PRN Reason: PAIN LEVEL 4-6 Last Admin: 07/20/19 17:26 Dose: 5 mg Oxycodone HCl (Roxicodone -) 10 mg PO Q4H PRN PRN Reason: PAIN LEVEL 7-10 Last Admin: 07/21/19 21:42 Dose: 10 mg - Objective Vital Signs: Vital Signs Temperature 101.7 F H 07/22/19 05:56 Pulse Rate 86 07/22/19 05:56 Respiratory Rate 18 07/22/19 05:56 Blood Pressure 114/54 L 07/22/19 05:56 O2 Sat by Pulse Oximetry (%) 95 07/21/19 20:05 Labs: CBC, BMP 07/21/19 07:20 07/21/19 07:20
[2019-07-22] MEDS: oxyCODONE HCL 5 MG TABLET PO PRN (09:41)
[2019-07-22 10:12] VITALS: BP 124/68; PULSE 94; TEMP 98.3
[2019-07-22 10:48] LABS: BASO % 0.3 % (0-2.0); EOS % 0.1 % (0-4.5); HEMATOCRIT 36.8 % (35.4-49); HEMOGLOBIN 12.5 GM/dL (11.7-16.9); LYMPH % 17.2 % (8-40); MCH 32.2 pg (25.7-33.7); MCHC 33.9 g/dl (32.0-35.9); MEAN CELL VOLUME 94.9 fl (80-96); MEAN PLT VOLUME 10.2 fl (7.5-11.1); MONO % 6.7 % (3.8-10.2); NEUT % 75.7 % (42.8-82.8); PLATELET COUNT 180 K/MM3 (134-434); RBC 3.88 M/mm3 (4.00-5.60); RDW 12.9 % (11.9-15.9)
[2019-07-22 11:21] LABS: ALBUMIN 2.7 g/dl (3.4-5.0); BILIRUBIN,TOTAL 0.6 mg/dL (0.2-1); BLOOD UREA NITROGEN 13.4 mg/dL (7-18); CALCIUM 8.2 mg/dL (8.5-10.1); CREATININE 0.8 mg/dL (0.55-1.3); MAGNESIUM 2.2 mg/dL (1.8-2.4)
--- NOTE | 2019-07-22 13:31 | DS ---
Physical Exam: SUBJECTIVE: Patient seen and examined Low grade temp overnight. Afebrile now. Medically stable for dc home OBJECTIVE: Vital Signs Period Temp Pulse Resp BP Sys/Plata Pulse Ox Last 24 Hr 97.9 F-101.7 F 72-96 18-20 100-148/50-83 95-98 PHYSICAL EXAM GENERAL: The patient is awake, alert, and fully oriented, in no acute distress. HEAD: Normal with no signs of trauma. EYES: PERRL, extraocular movements intact, sclera anicteric, conjunctiva clear. ENT: Ears normal, nares patent, oropharynx clear without exudates, moist mucous membranes. NECK: Trachea midline, full range of motion, supple. LUNGS: Breath sounds equal, clear to auscultation bilaterally, no wheezes, no crackles, no accessory muscle use. HEART: Regular rate and rhythm, S1, S2 without murmur, rub or gallop. ABDOMEN: Soft, nontender, nondistended, normoactive bowel sounds, no guarding, no rebound, no hepatosplenomegaly, no masses. EXTREMITIES: 2+ pulses, warm, well-perfused, no edema. NEUROLOGICAL: Cranial nerves II through XII grossly intact. Normal speech, gait not observed. PSYCH: Normal mood, normal affect. SKIN: Warm, dry, normal turgor, no rashes or lesions noted. Surgical incision CDI LABS Laboratory Results - last 24 hr 07/22/19 07/22/19 06:35 06:35 WBC 13.0 H RBC 3.88 L Hgb 12.5 Hct 36.8 MCV 94.9 MCH 32.2 MCHC 33.9 RDW 12.9 Plt Count 180 MPV 10.2 Absolute Neuts (auto) 9.9 H Neutrophils % 75.7 Lymphocytes % 17.2 D Monocytes % 6.7 Eosinophils % 0.1 Basophils % 0.3 Nucleated RBC % 0 Sodium 136 Potassium 4.0 Chloride 100 Carbon Dioxide 28 Anion Gap 7 L BUN 13.4 Creatinine 0.8 Est GFR (CKD-EPI)AfAm 125.92 Est GFR (CKD-EPI)NonAf 108.65 Random Glucose 106 Calcium 8.2 L Magnesium 2.2 Total Bilirubin 0.6 AST 42 H ALT 27 Alkaline Phosphatase 57 Total Protein 6.0 L Albumin 2.7 L HOSPITAL COURSE: Date of Admission:07/19/19 Date of Discharge: 07/22/19 Surgery: L5-S1 posterior lumbar interbody fusion with L5-S1 instrumented posterolateral arthrodesis Hypertension BP now stable Afebrile now. Cleared for discharge to home with surgical follow up Minutes to complete discharge: 35 Discharge Summary Problems reviewed: Yes Reason For Visit: INTERVERTEBRAL DISC DISORDERS W RADICULOPATHY Condition: Improved - Instructions Diet, Activity, Other Instructions: Post Operative Instructions Physical Activity Resume your normal everyday activity as tolerated. No heavy lifting or exercise until seen by your surgeon. You may walk unlimited amounts and climb stairs. You may resume driving the car when you feel safe and comfortable behind the wheel and you are no longer wearing your brace. Do not operate a vehicle while taking narcotic medication. Wound Care Keep your incision clean, dry and covered at all times. Apply an occlusive dressing (Saran wrap or Tegaderm) when showering to avoid getting your incision wet. Do not submerge incision or apply ointments or creams. The nicolasa will be removed in the office in 10-14 days post-op. Diet There are no dietary restrictions. Eat healthy, high-fiber foods. Drink 6-8 glasses of liquid each day. This will assist in keeping your bowels regular. Pain Management You may take Tylenol or acetaminophen. Any pain prescription medication ordered should be taken as prescribed for moderate to severe pain. Avoid any ibuprofen (Motrin, Advil, Aleve, Toradol, etc) for 3 months unless otherwise discussed with your surgeon. Call Dr Bruno for any of the following: Severe pain not relieved by medication Fever of 101 or higher Excessive bleeding or drainage on dressing Inability to urinate Any chest pain or shortness of breath, seek Emergency Care. Call the office to confirm a post-operative appointment onm 07/25/2019 at [facility] [place] office; call for appointment; . Referrals: Josué Bruno MD [Staff Physician] - Disposition: HOME - Home Medications Comprehensive Discharge Medication List: Ambulatory Orders Acetaminophen [Tylenol .Regular Strength -] 650 mg PO Q6H PRN tablet 07/22/19 Amox-Tr/K Cl [Augmentin 875-125mg Tablet -] 1 tab PO BID@0800,1730 #14 tablet 07/22/19 oxyCODONE HCL [Roxicodone -] 10 mg PO Q6H PRN #30 tablet MDD 40 07/22/19 Problem List - Problems (1) S/P lumbar fusion Code(s): Z98.1 - ARTHRODESIS STATUS (2) Atelectasis Code(s): J98.11 - ATELECTASIS This patient is new to me today: Yes Date on this admission: 07/30/19 Emergency Visit: Yes ED Registration Date: 07/19/19 Care time: The patient presented to the Emergency Department on the above date and was hospitalized for further evaluation of their emergent condition. Critical Care patient: No - Discharge Referral Referred to [facility] No
--- NOTE | 2019-07-22 17:07 | PATH ---
Surgical Pathology Report Patient Name: JUAN CERVANTES Med. Rec. #: [id number] /Age/Gender: 1975 (Age: 43) / M Account: [id number] Location: [facility] MED/SURG Taken: 07/19/2019 Received: 07/19/2019 Reported: 07/22/2019 Physicians: Josué Bruno M.D. Specimen(s) Received A: SYNOVIAL CYST, RIGHT, L5-S1, DESCEND B: DISC L5-S1 Clinical History L5-S1 intravertebral disc herniation with radiculopathy claudication/stenosis Final Diagnosis A. SYNOVIAL CYST, RIGHT, L5-S1, DESCEND, POSTERIOR LUMBAR INTERBODY FUSION: BENIGN DENSE CONNECTIVE TISSUE, BONE, AND FIBROADIPOSE TISSUE. B. DISC, L5-S1, POSTERIOR LUMBAR INTERBODY FUSION: BENIGN INTERVERTEBRAL DISC TISSUE. Electronically Signed Chelita Gandhi M.D. Gross Description A. Received in formalin labeled "synovial cyst right L5/S1 descend," is a 1.4 x 0.5 x 0.2 cm del cid-yellow, irregular portion of fibrous tissue, possibly consistent with a cyst. The specimen is submitted in toto in one cassette. B. Received in formalin labeled "disc L5-S1," is a 4.0 x 3.5 x 0.4 cm aggregate of del cid-red fragments of fibrocartilaginous tissue. A dairy supplies sales representative portion is submitted in one cassette. /07/19/2019 saudi/07/19/2019
[2019-07-22] MEDS ORDERED: AMOX TR/POT CLAV 875MG/125MG TABLETS (FP) PO SCH (17:30)
== END 2019-07-22 15:18 | disposition home or self-care (01) | DRG 454 ==
LOC: JSAMEDAYSX 06:05 → JICU 15:38 → J8W 07-20 19:31
PROVIDERS: ADMIT Orthopaedic Surgery Adult Reconstructive Orthopaedic Surgery; ATTEND Nurse Practitioner Acute Care
PROC: 0SG3071 Fusion of Lumbosacral Joint with Autologous Tissue Substitute, Posterior Approach, Posterior Column, Open Approach (ICD-10-PCS; 2019-07-19)
PROC: 0SB40ZZ Excision of Lumbosacral Disc, Open Approach (ICD-10-PCS; 2019-07-19)
PROC: 07DR3ZX Extraction of Iliac Bone Marrow, Percutaneous Approach, Diagnostic (ICD-10-PCS; 2019-07-19)
PROC: 4A11X4G Monitoring of Peripheral Nervous Electrical Activity, Intraoperative, External Approach (ICD-10-PCS; 2019-07-19)
PROC: B01BZZZ Fluoroscopy of Spinal Cord (ICD-10-PCS; 2019-07-19)
PROC: 0SG30AJ Fusion of Lumbosacral Joint with Interbody Fusion Device, Posterior Approach, Anterior Column, Open Approach (ICD-10-PCS; principal; 2019-07-19 08:00)
DX: M51.17 Intervertebral disc disorders with radiculopathy, lumbosacral region (principal); J98.11 Atelectasis; M48.8X7 Other specified spondylopathies, lumbosacral region; M48.07 Spinal stenosis, lumbosacral region; M46.07 Spinal enthesopathy, lumbosacral region; M43.17 Spondylolisthesis, lumbosacral region
CPT/HCPCS: 36415; 71045-TC-FY; 72100-TC-FY; 76000-TC-FY; 80048; 80053; 83735; 84100; 85025; 85027; 86850; 86900; 86901; 87040; 88304-TC; 94010; 94760; 97116-GP; 97161-GP; J0131; J1644